=== PATIENT | female | born 1960 | race Caucasian/White ===

== ENCOUNTER → 2017-03-31 | Outpatient (CLI) | payer OTHER ==
[~2017-03-31] MED LIST: APIX5TAB PO; BACL10TA PO; BUME1TAB PO; CARV25TA PO; DIGO0.12 PO; LIPI20TA PO; LISI-360 PO; LORA1TAB PO; POTA-243 PO; SPIR25TA PO; TRAM50TA PO; ZOLP5TAB3 PO
--- NOTE | 2017-03-31 11:02 | RADRPT ---
EXAM DATE/TIME: 03/31/2017 00:00 [place] COMPARISON: No previous studies available for comparison. OUTSIDE STUDY REVIEWED: Previous ultrasounds of the abdomen dated 03/01/17, 12/31/16, and 09/23/16. Previous PET/CT scan dated . Previous CT of the abdomen and pelvis dated 11/06/16. INDICATIONS : CT Guided Liver Biopsy FINDINGS: The patient's previous examinations were reviewed for evaluation of possible CT-guided liver biopsy. The 2 liver masses have been stable and demonstrate no significant hypermetabolism on the PET/CT scan and therefore likely are benign. Biopsy of these lesions does not appear to be necessary at this juliette e unless other unknown clinical findings exist. RECOMMENDATION: Stable liver masses which demonstrate no significant hypermetabolism on PET/CT scan and therefore lik deangelo are benign. Biopsy of these lesions does not appear to be necessary at this time unless other unk nown clinical findings exist. Mohsen Onofre MD on March 31, 2017 at 10:56 Board Certified Radiologist. This report was verified electronically.
== END ==
LOC: HRAD 08:32
PROVIDERS: ATTEND Internal Medicine Gastroenterology
DX: K76.9 Liver disease, unspecified (principal)
CPT/HCPCS: 76140